=== PATIENT | male | born 1980 | race Caucasian/White ===

== ENCOUNTER 2018-09-18 06:41 | Emergency (ER) | payer OTHER ==
[~2018-09-18] VITALS: Ht 167.6 cm; Wt 72.6 kg
== END 2018-09-18 13:49 | disposition home or self-care (01) ==
LOC: ER 06:41
DX: N20.0 Calculus of kidney (principal); R10.32 Left lower quadrant pain

== ENCOUNTER 2023-05-15 12:07 | Inpatient (IN) | payer OTHER ==
[~2023-05-15] VITALS: Ht 152.4 cm; Wt 72.6 kg
[2023-05-15 16:12] LABS: HEMATOCRIT 43.5 % (39.0-48.0); HEMOGLOBIN 15.1 g/dL (13-16.00); MEAN CELL VOLUME 87.1 fL (80.0-100.00); MEAN CORPUSCULAR HEMOGLOBIN 30.2 pg (27.00-32.0); MEAN CORPUSCULAR HGB CONC 34.7 g/dl (32.0-36.0); RED CELL DISTRIBUTION WIDTH 14.2 % (11.5-14.5)
[2023-05-15 16:14] LABS: PLATELET COUNT 50 K/uL (150-450)
[2023-05-15 22:30] LABS: ALBUMIN 3.1 gm/dL (3.4-5.0); BILIRUBIN TOTAL 0.37 mg/dL (0.3-1.2); BILIRUBIN,CONJUGATED 0.11 mg/dL (0.0-0.2); BILIRUBIN,UNCONJUGATED 0.26 mg/dL (0.0-0.6); TOTAL PROTEIN 6.1 gm/dL (6.4-8.2)
[2023-05-15 22:31] LABS: C-REACTIVE PROTEIN 2.96 MG/DL (0.00-0.29)
[2023-05-15 22:40] LABS: INR 1.44; PROTHROMBIN TIME 14.7 SECONDS (9.0-11.5)
[2023-05-15 22:46] LABS: PARTIAL THROMBOPLASTIN TIME 38.4 SECONDS (22.0-34.0)
[2023-05-16 06:18] LABS: HEMATOCRIT 40.9 % (39.0-48.0); HEMOGLOBIN 14.1 g/dL (13-16.00); MEAN CELL VOLUME 88.5 fL (80.0-100.00); MEAN CORPUSCULAR HEMOGLOBIN 30.5 pg (27.00-32.0); MEAN CORPUSCULAR HGB CONC 34.5 g/dl (32.0-36.0); RED BLOOD COUNT 4.63 M/uL (4.00-6.00); RED CELL DISTRIBUTION WIDTH 13.5 % (11.5-14.5)
[2023-05-16 07:23] LABS: ALBUMIN 3.1 gm/dL (3.4-5.0); BILIRUBIN TOTAL 0.33 mg/dL (0.3-1.2); CALCIUM 7.4 mg/dL (8.5-10.1); CREATININE SERUM 0.72 mg/dL (0.70-1.30); GFR 118.59; GLOBULINA 2.4 G/DL (2.4-3.5); POTASSIUM 4.45 mEq/L (3.5-5.1); TOTAL PROTEIN 5.5 gm/dL (6.4-8.2)
[2023-05-16 07:34] LABS: PLATELET COUNT 25 K/uL (150-450)
[2023-05-16 07:35] LABS: PLT IN CITRATE 24 K/uL (150-450)
[2023-05-16 07:41] LABS: ERYTHROCYTE SEDIMENTATION RATE 4 mm/hr
[2023-05-16 09:15] LABS: URINE APPEARANCE Clear; URINE BILIRRUBIN Negative (NEGATIVE); URINE BLOOD Negative; URINE COLOR Yellow; URINE GLUCOSE Negative (NEGATIVE); URINE LEUKOCYTE Negative; URINE NITRATE Negative; URINE PROTEIN Trace (NEGATIVE); URINE UROBILINOGEN 0.2 E.U./dl
[2023-05-16 09:16] LABS: URINE BACTERIA 20.1 uL (0.0-1933); URINE EPITHELIAL CELLS 7.4 uL (0.0-38.8); URINE RBC 9.1 uL (0.0-20.8); URINE WBC 13.4 uL (0.0-23.2)
[2023-05-17 06:28] LABS: HEMATOCRIT 42.3 % (39.0-48.0); HEMOGLOBIN 14.8 g/dL (13-16.00); MEAN CELL VOLUME 87.8 fL (80.0-100.00); MEAN CORPUSCULAR HEMOGLOBIN 30.7 pg (27.00-32.0); MEAN CORPUSCULAR HGB CONC 34.9 g/dl (32.0-36.0); RED BLOOD COUNT 4.82 M/uL (4.00-6.00); RED CELL DISTRIBUTION WIDTH 13.9 % (11.5-14.5)
[2023-05-17 07:10] LABS: ALBUMIN 3.1 gm/dL (3.4-5.0); BILIRUBIN TOTAL 0.3 mg/dL (0.3-1.2); CALCIUM 8.4 mg/dL (8.5-10.1); CREATININE SERUM 0.76 mg/dL (0.70-1.30); GFR 111.42; GLOBULINA 2.8 G/DL (2.4-3.5); POTASSIUM 4.67 mEq/L (3.5-5.1); TOTAL PROTEIN 5.9 gm/dL (6.4-8.2)
[2023-05-17 07:57] LABS: PLATELET COUNT 15 K/uL (150-450)
[2023-05-17 17:17] LABS: HEMATOCRIT 43.6 % (39.0-48.0); HEMOGLOBIN 15.1 g/dL (13-16.00); MEAN CELL VOLUME 87.4 fL (80.0-100.00); MEAN CORPUSCULAR HEMOGLOBIN 30.3 pg (27.00-32.0); MEAN CORPUSCULAR HGB CONC 34.6 g/dl (32.0-36.0); RED BLOOD COUNT 4.99 M/uL (4.00-6.00); RED CELL DISTRIBUTION WIDTH 13.6 % (11.5-14.5)
[2023-05-17 17:44] LABS: PLATELET COUNT 27 K/uL (150-450)
[2023-05-18 06:11] LABS: HEMATOCRIT 42.2 % (39.0-48.0); HEMOGLOBIN 14.5 g/dL (13-16.00); MEAN CELL VOLUME 87.3 fL (80.0-100.00); MEAN CORPUSCULAR HEMOGLOBIN 29.9 pg (27.00-32.0); MEAN CORPUSCULAR HGB CONC 34.3 g/dl (32.0-36.0); RED BLOOD COUNT 4.84 M/uL (4.00-6.00); RED CELL DISTRIBUTION WIDTH 13.4 % (11.5-14.5)
[2023-05-18 07:13] LABS: ALBUMIN 3.1 gm/dL (3.4-5.0); BILIRUBIN TOTAL 0.35 mg/dL (0.3-1.2); CALCIUM 8.3 mg/dL (8.5-10.1); CREATININE SERUM 0.81 mg/dL (0.70-1.30); GFR 103.52; POTASSIUM 3.95 mEq/L (3.5-5.1); TOTAL PROTEIN 6.1 gm/dL (6.4-8.2)
[2023-05-18 07:14] LABS: C-REACTIVE PROTEIN 0.44 MG/DL (0.00-0.29)
[2023-05-18 08:04] LABS: PLATELET COUNT 15 K/uL (150-450)
[2023-05-18 20:12] LABS: HEMATOCRIT 42.4 % (39.0-48.0); HEMOGLOBIN 14.6 g/dL (13-16.00); MEAN CELL VOLUME 87.4 fL (80.0-100.00); MEAN CORPUSCULAR HGB CONC 34.4 g/dl (32.0-36.0); RED BLOOD COUNT 4.85 M/uL (4.00-6.00); RED CELL DISTRIBUTION WIDTH 13.5 % (11.5-14.5)
[2023-05-18 20:31] LABS: PLATELET COUNT 41 K/uL (150-450)
[2023-05-19 06:24] LABS: HEMATOCRIT 41.4 % (39.0-48.0); HEMOGLOBIN 14.6 g/dL (13-16.00); MEAN CELL VOLUME 85.9 fL (80.0-100.00); MEAN CORPUSCULAR HEMOGLOBIN 30.2 pg (27.00-32.0); MEAN CORPUSCULAR HGB CONC 35.2 g/dl (32.0-36.0); RED BLOOD COUNT 4.82 M/uL (4.00-6.00); RED CELL DISTRIBUTION WIDTH 13.7 % (11.5-14.5)
[2023-05-19 07:54] LABS: PLATELET COUNT 20 K/uL (150-450)
[2023-05-19 17:17] LABS: ob POSITIVE (NEGATIVE)
[2023-05-20 05:45] LABS: HEMATOCRIT 47.8 % (39.0-48.0); HEMOGLOBIN 16.5 g/dL (13-16.00); MEAN CORPUSCULAR HGB CONC 34.5 g/dl (32.0-36.0); RED CELL DISTRIBUTION WIDTH 13.6 % (11.5-14.5)
[2023-05-20 06:03] LABS: ALBUMIN 3.7 gm/dL (3.4-5.0); BILIRUBIN TOTAL 0.61 mg/dL (0.3-1.2); CALCIUM 8.8 mg/dL (8.5-10.1); CREATININE SERUM 0.88 mg/dL (0.70-1.30); GFR 94.08; GLOBULINA 3.6 G/DL (2.4-3.5); POTASSIUM 3.89 mEq/L (3.5-5.1); TOTAL PROTEIN 7.3 gm/dL (6.4-8.2)
[2023-05-20 07:58] LABS: PLATELET COUNT 40 K/uL (150-450)
[2023-05-21 07:46] LABS: HEMOGLOBIN 16.5 g/dL (13-16.00); MEAN CELL VOLUME 85.5 fL (80.0-100.00); MEAN CORPUSCULAR HGB CONC 35.1 g/dl (32.0-36.0); RED CELL DISTRIBUTION WIDTH 13.5 % (11.5-14.5)
[2023-05-21 07:56] LABS: ALBUMIN 3.4 gm/dL (3.4-5.0); BILIRUBIN TOTAL 0.53 mg/dL (0.3-1.2); BILIRUBIN,CONJUGATED 0.18 mg/dL (0.0-0.2); BILIRUBIN,UNCONJUGATED 0.35 mg/dL (0.0-0.6); CALCIUM 8.7 mg/dL (8.5-10.1); CREATININE SERUM 0.83 mg/dL (0.70-1.30); GFR 100.65; POTASSIUM 4.2 mEq/L (3.5-5.1); TOTAL PROTEIN 6.9 gm/dL (6.4-8.2)
[2023-05-21 07:58] LABS: INR 1.03; PROTHROMBIN TIME 10.8 SECONDS (9.0-11.5)
[2023-05-21 08:53] LABS: PLATELET COUNT 80 K/uL (150-450)
== END 2023-05-21 12:55 | disposition home or self-care (01) | DRG 866 ==
LOC: ER 12:08 → MEDI 22:08
PROVIDERS: General Practice; Internal Medicine; Internal Medicine Hematology & Oncology; Internal Medicine Infectious Disease; Nurse Practitioner Family; ADMIT Internal Medicine; ATTEND Internal Medicine
PROC: 30233N1 Transfusion of Nonautologous Red Blood Cells into Peripheral Vein, Percutaneous Approach (ICD-10-PCS; principal; 2023-05-17)
DX: A90 Dengue fever [classical dengue] (principal); D69.6 Thrombocytopenia, unspecified; D72.819 Decreased white blood cell count, unspecified

== ENCOUNTER 2025-04-20 15:34 | Emergency (ER) | payer OTHER ==
[~2025-04-20] VITALS: Ht 167.6 cm; Wt 68.0 kg
[2025-04-20 18:08] LABS: BASO % 0.8 % (0.1-1.2); EOS # 0.32 (0.04-0.54); EOS % 3.3 % (0.7-7.0); LYMPH # 2.95 (1.18-3.74); LYMPH % 30.4 % (19.3-53.1); MEAN PLATELET VOLUME 9.80 fl (9.4-12.4); MONO # 0.74 (0.24-0.82); MONO % 7.6 % (4.7-12.5); NEUT # 5.57 (1.56-6.13); NEUT % 57.5 % (34.0-71.1); RED CELL DISTRIBUTION WIDTH 12.6 % (11.6-14.4)
[2025-04-20 18:10] LABS: ERYTHROCYTE SEDIMENTATION RATE 5 mm/hr (0-15)
[2025-04-20 18:39] LABS: ALT/SGPT 29 U/L (12-78); AST/SGOT 21 U/L (15-37); BILIRUBIN TOTAL 0.33 mg/dL (0.3-1.2); BUN CREA RATIO 32 (7.0-25.0); CREATININE SERUM 0.95 mg/dL (0.70-1.30); GFR 85.35; GLOBULINA 3.1 G/DL (2.4-3.5); GLUCOSE FASTING 92 mg/dL (65-100); OSMOLALITY SERUM 289 MOSM/KG (275-295)
== END 2025-04-20 20:12 | disposition home or self-care (01) ==
LOC: ER 15:35
PROVIDERS: General Practice
DX: M54.59 Other low back pain (principal); M79.641 Pain in right hand; M79.642 Pain in left hand

== ENCOUNTER 2025-04-27 09:22 | Emergency (ER) | payer OTHER ==
[~2025-04-27] VITALS: Ht 167.6 cm; Wt 65.8 kg
[2025-04-27] MEDS ORDERED: 0.9 % SODIUM CHLORIDE 1,000 ML IV STA (09:40)
[2025-04-27 09:58] LABS: BASO % 0.6 % (0.1-1.2); EOS # 0.12 (0.04-0.54); EOS % 1.7 % (0.7-7.0); LYMPH # 1.69 (1.18-3.74); LYMPH % 24.4 % (19.3-53.1); MEAN PLATELET VOLUME 9.80 fl (9.4-12.4); MONO # 0.64 (0.24-0.82); MONO % 9.2 % (4.7-12.5); NEUT # 4.42 (1.56-6.13); NEUT % 63.7 % (34.0-71.1); RED CELL DISTRIBUTION WIDTH 12.3 % (11.6-14.4)
[2025-04-27 10:02] LABS: ERYTHROCYTE SEDIMENTATION RATE 16 mm/hr (0-15)
[2025-04-27 10:37] LABS: ALT/SGPT 25.0 U/L (12-78); AST/SGOT 14.0 U/L (15-37); BILIRUBIN TOTAL 0.62 mg/dL (0.3-1.2); BUN CREA RATIO 18.0 (7.0-25.0); CREATININE SERUM 0.92 mg/dL (0.70-1.30); GFR 88.57; GLOBULINA 4.0 G/DL (2.4-3.5); GLUCOSE FASTING 102.0 mg/dL (65-100); OSMOLALITY SERUM 281.0 MOSM/KG (275-295)
== END 2025-04-27 13:43 | disposition home or self-care (01) ==
LOC: ER 09:22
PROVIDERS: General Practice
DX: R10.32 Left lower quadrant pain (principal); R10.9 Unspecified abdominal pain
CPT/HCPCS: 36415; 74177; Q9965